=== PATIENT | female | born 1990 ===

== ENCOUNTER 2020-02-27 03:09 | Inpatient (IN) ==
[2020-02-27] MEDS ORDERED: OXYTOCIN 30 UNITS/500 ML BAG IV PRN ×3 (04:16→16:45)
--- NOTE | 2020-02-27 04:22 | History & Physical Report ---
Date of Service February 27, 2020 Assessment & Plan (1) Normal labor: Admit for labor. Fetus catgory one. Epidural on demand. Can feel a forebag that will likely need to be ruptured at some point. Pitocin as indicated. Anticipate . (2) SROM (spontaneous rupture of membranes): gbs neg History of Present Illness Chief Complaint: lof, contractions Primary Care Provider: NO PCP Patient is a 29yowf with iup at 40 5/7 presents to labor and delivery complaining of lof since about 1:45 am. Notes onset of contractions shortly after that. Patient is uncomfortable. Late transfer of care from [facility] because of concern for covid. She had been self-isolating with her mother since December. she had nob visit on 02/12 and her first ob visit on 02/13. complicated by morbid obesity. Had a normal growth us at 32 weeks. Her last visit in [place] was in January. Poorly controlled hypothyroidism predating the . Last TSH was 3. Records were available on transfer. Has [facility] and was on Adderall until about one month ago when she self discontinued. labs--O+/ab-/gc/ct nl/ri/rprnr/hepb-/hiv-/ gtt x 2 wnl/gbs neg Allergies Allergy/AdvReac Type Severity Reaction Status Date / Time shellfish derived Allergy Verified 02/21/20 09:27 Home Medications Home Medications Medication Instructions Recorded Confirmed Type albuterol sulfate 90 mcg/actuation 2 puffs INH Q6H PRN 02/13/20 02/21/20 History aerosol inhaler levothyroxine 200 mcg capsule 200 mcg PO DAILY 02/13/20 02/21/20 History prenat.vits,shahnaz,hnj-eiou-vjbfd 1 tab PO DAILY 02/13/20 02/21/20 History Patient History Medical History ADD (attention deficit disorder) Asthma Hx of varicella Hypothyroid Missed Obesity Surgical History H/O oral surgery Family History Grandmother (Maternal) Lung cancer Grandmother (Paternal) Lung cancer Mother Thyroid disease Osteoporosis Aunt Diabetes Other Hypertension Social History Preferred Language: Mongolian Communication Ability: Effective Beliefs That Will Affect Care: None marital status: Single marital status details: Nawaf Fonseca (38) [phone] Current Living Situation: Parent Current Living Situation Comment: currently living with parents but normally lives with boyfriend current occupational status: employed current occupation: [employer] Other Information That Helps Us Care for You: No Feels Safe at Home: Yes Safety Concerns: Feels Safe At This Time Smoking Status: Never smoker Second Hand Exposure: No ; Hx Alcohol Use: No Hx Substance Use: No OB History g1--02/18, sab, 7 weeks. [employer] History noncontributory Review of Systems All systems reviewed & are unremarkable except as noted in HPI & below Physical Exam Constitutional: WD/WN, vitals as above Cardiovascular: Extremities: + edema (+2 pitting); no calf tenderness Gastrointestinal (Abdomen): obese, gravid Psychiatric: A+Ox3, euthymic affect Genitourinary: sse--thin mec stained fluid noted, +p/n/f sve--3/90/-2 toco--q3-5min efm--135 with mod variability, accels to 160s, no decels Results & Data Vital Signs (Past 12 Hours) Vital Signs Temp Pulse Resp BP 02/27/20 03:44 85 158/83 H 02/27/20 03:42 70 183/103 H 02/27/20 03:32 36.8 C 20 Code Status & VTE Plan VTE Prophylaxis Plan VTE Prophylaxis will be ordered: No Coding Level of Care Code None Diagnoses Normal labor O80; Z37.9 SROM (spontaneous rupture of membranes)
[2020-02-27] MEDS ORDERED: ePHEDrine sulfate 50 MG/ML AMP ONE (04:41)
[2020-02-27] MEDS ORDERED: BUPIVACAINE 0.25% 30 ML VIAL ONE ×3 (04:41→13:09)
[2020-02-27] MEDS ORDERED: fentaNYL citrate 100 MCG/2 ML VIAL ONE (04:42)
[2020-02-27 04:43] LABS: Hematocrit (blood only) 33.9 % (37-47); Hemoglobin 10.7 g/dL (12.0-16.0); Mean Corpuscular Hemoglobin 23.2 pg (25-34); Mean Corpuscular Volume 73.4 fL (80-100); Mean Platelet Volume 11.1 fL (7.4-10.4); Platelet Count 177 K/uL (130-400); RDW Coefficient of Variation 16.6 % (11.5-14.5); Red Blood Count 4.62 M/uL (4.2-5.4); White Blood Count 8.35 K/uL (4.8-10.8)
[2020-02-27] MEDS ORDERED: fentaNYL 2MCG/ML ROPIV 1.25MG/ML 100 ML BAG EPI ONE (04:43)
[2020-02-27] MEDS: LACTATED RINGER'S 1,000 ML IV PRN ×2 (04:44→09:50)
[2020-02-27 04:58] LABS: Albumin Level 2.7 gm/dl (3.4-5.0); BUN Creatinine Ratio 9.1 (10-20); Calcium 8.6 mg/dl (8.5-10.1); Creatinine Clr Calc Pharmacy 121.4 ml/min; Est GFR (African American) 86.9; Potassium 3.9 mmol/L (3.5-5.1)
[2020-02-27 05:01] LABS: Albumin Globulin Ratio 0.6 (0.9-2); Bilirubin,Total 0.4 mg/dl (0.2-1); Globulin 4.4 gm/dl (2.5-4.0); Total Protein 7.1 gm/dl (6.4-8.2)
--- NOTE | 2020-02-27 05:08 | Anesthesiology Consultation ---
Date of Service February 27, 2020 Assessment & Plan (1) Encounter for pre-operative examination: Chart Review Chart Review: Acceptable Risk for Labor Epidural History Height/Weight Height: 5 ft 9 in Weight: 136.531 kg Allergies Allergy/AdvReac Type Severity Reaction Status Date / Time shellfish derived Allergy Verified 02/21/20 09:27 Medications Home Medications Medication Instructions Recorded Confirmed Last Taken albuterol sulfate 90 mcg/actuation 2 puffs INH Q6H PRN 02/13/20 02/21/20 Unknown aerosol inhaler levothyroxine 200 mcg capsule 200 mcg PO DAILY 02/13/20 02/21/20 Unknown prenat.vits,shahnaz,qal-jqyw-eultk 1 tab PO DAILY 02/13/20 02/21/20 Unknown Active Medications Generic Name Dose Route Start Last Admin Trade Name Freq PRN Reason Stop Dose Admin Lactated Ringer's 1,000 mls @ 125 mls/hr 02/27/20 04:16 02/27/20 04:44 Lr IV 02/29/20 04:15 999 mls/hr .Q8H PRN Administration L&D Protocol Protocol Past Medical History Medical History ADD (attention deficit disorder) Asthma Hx of varicella Hypothyroid Missed Obesity Past Family History Family History Grandmother (Maternal) Lung cancer Grandmother (Paternal) Lung cancer Mother Thyroid disease Osteoporosis Aunt Diabetes Other Hypertension Past Surgical History Surgical History H/O oral surgery Social History Smoking Status: Never smoker Hx Alcohol Use: No Hx Substance Use: No Physical Exam Vital Signs Last Vital Signs Temp 36.8 C 02/27/20 03:32 Pulse 85 02/27/20 03:44 Resp 20 02/27/20 03:32 BP 158/83 H 02/27/20 03:44 Testing Laboratory Results 02/27/20 04:25 02/27/20 04:25
[2020-02-27 05:27] LABS: Mean Corpuscular Hgb Conc 31.6 g/dL (32-36)
[2020-02-27] MEDS ORDERED: NALOXONE HCL 1 MG in SODIUM CHLORIDE 0.9% 1000ML 1,000 ML IV PRN (05:40)
[2020-02-27] MEDS ORDERED: fentaNYL 2MCG/ML ROPIV 1.25MG/ML 100 ML BAG EPI PRN (05:40)
[2020-02-27] MEDS ORDERED: ePHEDrine sulfate 50 MG/ML AMP IV PRN (05:40)
[2020-02-27] MEDS ORDERED: ONDANSETRON INJ 2 MG/ML 2 ML VIAL IV PRN (05:40)
[2020-02-27] MEDS ORDERED: NALOXONE HCL 0.4 MG/1 ML VIAL/CARP IV PRN (05:40)
--- NOTE | 2020-02-27 06:58 | Labor Progress Brief Note ---
Date of Service February 27, 2020 Subjective comfortable with epidural Assessment & Plan (1) SROM (spontaneous rupture of membranes): (2) Normal labor: continue current management. making change so will hold off on pitocin for now. fetus category one. anticipate . Physical Exam Constitutional: WD/WN, vitals as above Psychiatric: A+Ox3, euthymic affect Genitourinary: cx--4/75/-2 copious meconium toco--q2-4min efm--135 with mod variability, accels to 160s, no decels Results & Data Vital Signs (Past 12 Hours) Vital Signs Temp Pulse Resp BP Pulse Ox 02/27/20 06:52 95 H 98 02/27/20 06:47 79 96 02/27/20 06:45 64 128/80 02/27/20 06:42 76 97 02/27/20 06:37 64 97 02/27/20 06:32 76 97 02/27/20 06:30 66 118/76 02/27/20 06:27 62 98 02/27/20 06:23 85 93 02/27/20 06:22 67 95 02/27/20 06:17 86 97 02/27/20 06:16 70 118/71 02/27/20 06:12 94 H 97 02/27/20 06:07 96 H 96 02/27/20 06:02 77 97 02/27/20 05:59 96 H 91/61 L 02/27/20 05:57 98 H 99 02/27/20 05:52 111 H 98 02/27/20 05:47 101 H 99 02/27/20 05:44 109 H 105/61 02/27/20 05:42 110 H 115/66 97 02/27/20 05:40 103 H 118/69 02/27/20 05:38 122 H 123/71 02/27/20 05:37 121 H 98 02/27/20 05:32 100 H 139/88 98 02/27/20 05:31 81 91 02/27/20 05:27 87 100 02/27/20 05:22 92 H 100 02/27/20 05:17 81 180/82 H 100 02/27/20 05:10 36.6 C 02/27/20 03:44 85 158/83 H 05/27/20 03:42 70 183/103 H 05/27/20 03:32 36.8 C 20 Coding Level of Care Code None Diagnoses SROM (spontaneous rupture of membranes) Normal labor O80; Z37.9
--- NOTE | 2020-02-27 12:07 | Labor Progress Brief Note ---
Date of Service February 27, 2020 Cx still 4cm. Pitocin at 7 mu/min. Some early decels. IUPC placed to assess CTX strength Results & Data Vital Signs (Past 12 Hours) Vital Signs Temp Pulse Resp BP Pulse Ox 02/27/20 12:02 79 99 02/27/20 12:01 81 150/79 H 02/27/20 11:57 76 100 02/27/20 11:52 71 99 02/27/20 11:47 74 100 02/27/20 11:45 76 147/80 H 02/27/20 11:42 63 100 02/27/20 11:37 61 100 02/27/20 11:32 73 99 02/27/20 11:30 62 133/73 02/27/20 11:27 62 99 02/27/20 11:25 79 93 02/27/20 11:22 69 100 02/27/20 11:21 69 150/82 H 02/27/20 11:17 88 99 02/27/20 11:15 81 154/103 H 02/27/20 11:12 64 97 02/27/20 11:07 76 98 02/27/20 11:02 70 167/87 H 99 02/27/20 10:57 83 99 02/27/20 10:52 78 100 02/27/20 10:47 87 100 02/27/20 10:46 90 177/88 H 02/27/20 10:42 89 100 02/27/20 10:37 92 H 100 02/27/20 10:32 74 99 02/27/20 10:30 85 142/78 H 02/27/20 10:27 84 100 02/27/20 10:23 90 91 02/27/20 10:22 83 100 02/27/20 10:17 75 99 02/27/20 10:15 63 152/90 H 02/27/20 10:12 76 100 02/27/20 10:07 91 H 99 02/27/20 10:02 89 100 02/27/20 10:01 77 151/87 H 02/27/20 09:57 78 100 02/27/20 09:52 86 99 02/27/20 09:47 90 100 02/27/20 09:44 82 135/90 02/27/20 09:42 76 98 02/27/20 09:37 79 98 05 09:32 70 99 05 09:31 83 134/87 05 09:27 89 98 05 09:22 91 H 98 02/27/20 09:17 91 H 100 02/27/20 09:15 85 130/80 05 09:12 76 98 05 09:08 85 93 02/27/20 09:07 70 97 02/27/20 09:02 78 100 02/27/20 09:00 66 127/85 05 08:57 74 99 05 08:52 84 99 05 08:47 90 100 02/27/20 08:45 87 139/89 05 08:42 71 99 02/27/20 08:37 81 100 02/27/20 08:32 91 H 97 02/27/20 08:31 85 134/81 02/27/20 08:27 77 99 05 08:22 81 100 02/27/20 08:17 87 100 02/27/20 08:15 85 136/82 05 08:12 84 99 02/27/20 08:07 93 H 100 02/27/20 08:02 91 H 100 02/27/20 08:01 83 142/94 H 02/27/20 07:57 86 100 02/27/20 07:52 73 100 02/27/20 07:47 93 H 98 02/27/20 07:44 83 147/86 H 02/27/20 07:42 85 98 02/27/20 07:37 81 100 02/27/20 07:32 71 100 02/27/20 07:30 75 142/87 H 02/27/20 07:27 81 100 02/27/20 07:22 82 100 02/27/20 07:20 98.1 F 20 02/27/20 07:17 84 99 05 07:16 85 137/81 05 07:12 86 98 02/27/20 07:07 68 99 02/27/20 07:02 88 99 05 07:01 81 122/86 05 06:57 83 98 02/27/20 06:52 95 H 98 02/27/20 06:47 79 96 02/27/20 06:45 64 128/80 02/27/20 06:42 76 97 02/27/20 06:37 64 97 02/27/20 06:32 76 97 02/27/20 06:30 66 118/76 02/27/20 06:27 62 98 02/27/20 06:23 85 93 02/27/20 06:22 67 95 02/27/20 06:17 86 97 02/27/20 06:16 70 118/71 02/27/20 06:12 94 H 97 02/27/20 06:07 96 H 96 02/27/20 06:02 77 97 02/27/20 05:59 96 H 91/61 L 02/27/20 05:57 98 H 99 02/27/20 05:52 111 H 98 02/27/20 05:47 101 H 99 02/27/20 05:44 109 H 105/61 02/27/20 05:42 110 H 115/66 97 02/27/20 05:40 103 H 118/69 02/27/20 05:38 122 H 123/71 02/27/20 05:37 121 H 98 02/27/20 05:32 100 H 139/88 98 02/27/20 05:31 81 91 02/27/20 05:27 87 100 02/27/20 05:22 92 H 100 02/27/20 05:17 81 180/82 H 100 02/27/20 05:10 97.9 F 02/27/20 03:44 85 158/83 H 02/27/20 03:42 70 183/103 H 02/27/20 03:32 98.2 F 20 Coding Level of Care Code None
--- NOTE | 2020-02-27 13:15 | Communication Note ---
Date of Service: February 27, 2020 Patient with increasing pain despite upping her epidural rate. Gave 8ml of 0.25% bupivicaine with minimal relief. Checked a sensory loss level and seemed ep idural was one sided. Pulled catheter back 1cm and resecured. Additional 5ml 0.25% bupivicaine given. Better relief. VSS.
--- NOTE | 2020-02-27 16:32 | Delivery Summary ---
Vaginal Delivery Summary Date of Service February 27, 2020 Patient had been pushing for 2 hours and had reached maternal exhaustion she did have wrist for a shoulder dystocia as she is obese. With that being said I did offer the patient to continue pushing versus the option of vacuum assist station was +2 cm and I think vacuum appropriate and safe I could feel low pelvic disproportion discussed the risks including cephalhematoma of vacuum patient agreed Bladder was drained vacuum was applied we pulled for a total of 1 contraction no pop pop offs baby was delivered head first vacuum detached gentle traction on the baby no excessive force no difficulties with shoulder no nuchal cord baby was placed on the mother's abdomen and then to pediatrics. We did do bulb suction of the mouth. I had made a small right medial lateral episiotomy in preparation for possible shoulder dystocia. This was repaired with 3-0 Vicryl placenta was then removed with gentle traction IV Pitocin started estimated blood loss 300 mL no other tearing sponge and instrument counts correct
[2020-02-27] MEDS ORDERED: ACETAMINOPHEN 325 MG TAB PO PRN (16:45)
[2020-02-27] MEDS ORDERED: HYDROCORTISONE ACETATE 25 MG SUPP PR PRN (16:45)
[2020-02-27] MEDS ORDERED: ALBUTEROL HFA 8 GM INHALER INH PRN (16:45)
[2020-02-27] MEDS ORDERED: BENZOCAINE 20% AER SPR 82.5 GM CAN EXT PRN (16:45)
[2020-02-27] MEDS ORDERED: OXYCODONE/ACETAMINOPHEN 5mg/325mg TAB PO PRN (16:45)
[2020-02-27] MEDS ORDERED: SUPERCREAM 0.870% 15 GM JAR EXT PRN (16:45)
[2020-02-27] MEDS ORDERED: DIPHTHERIA/TETANUS/PERTUSSIS 0.5 ML SYR/VIAL IM ONE (16:45)
[2020-02-27] MEDS ORDERED: bisacodyL 10 MG SUPP PR PRN (16:45)
[2020-02-27] MEDS: IBUPROFEN 600 MG TAB PO PRN ×2 (16:50→20:59)
--- NOTE | 2020-02-27 16:52 | Anesthesia Procedure Note ---
Date of Service February 27, 2020 Anesthesia Post Epidural Note Vital Signs Vital Signs: Temp Pulse Resp BP Pulse Ox 36.7 C 118 H 20 137/79 100 02/27/20 07:20 02/27/20 16:42 02/27/20 14:13 02/27/20 16:42 02/27/20 16:18 Notes Mental Status: alert / awake / arousable and participated in evaluation Patient Amnestic to Procedure: No Nausea / Vomiting: adequately controlled Pain: adequately controlled Airway Patency, RR, SpO2: stable & adequate BP & HR: stable & adequate Hydration State: stable & adequate Neuraxial Anesthesia: was administered and sensory block is resolving Anesthetic Complications: no major complications apparent and Pt Satisfied with anesthetic care Epidural: Removed without complications and With tip intact
--- NOTE | 2020-02-27 16:52 | Anesthesiology Progress Note ---
Date of Service February 27, 2020 Anesthesia Post Procedure Vital Signs Vital Signs: Temp Pulse Resp BP Pulse Ox 02/27/20 16:42 118 H 137/79 02/27/20 16:24 118 H 157/74 H 02/27/20 16:18 134 H 100 02/27/20 16:13 138 H 99 02/27/20 16:09 126 H 189/87 H 02/27/20 16:08 136 H 95 02/27/20 16:03 111 H 98 02/27/20 15:58 117 H 97 02/27/20 15:53 111 H 92 02/27/20 15:49 123 H 92 02/27/20 15:48 111 H 97 02/27/20 15:43 121 H 98 02/27/20 15:39 106 H 150/89 H 02/27/20 15:38 98 H 96 02/27/20 15:33 109 H 98 02/27/20 15:28 143 H 98 02/27/20 15:24 118 H 134/86 02/27/20 15:23 117 H 95 02/27/20 15:21 108 H 94 02/27/20 15:18 116 H 97 02/27/20 15:14 128 H 92 02/27/20 15:13 118 H 98 02/27/20 15:09 119 H 172/79 H 93 02/27/20 15:08 114 H 81 L 02/27/20 15:04 122 H 91 02/27/20 15:03 108 H 97 02/27/20 14:58 110 H 98 02/27/20 14:57 137 H 91 02/27/20 14:55 126 H 169/84 H 02/27/20 14:53 108 H 97 02/27/20 14:52 136 H 145/85 H 93 02/27/20 14:48 117 H 98 02/27/20 14:43 113 H 98 02/27/20 14:41 138 H 93 02/27/20 14:38 111 H 96 02/27/20 14:33 104 H 98 02/27/20 14:32 123 H 150/74 H 02/27/20 14:30 140 H 86 L 02/27/20 14:28 116 H 98 02/27/20 14:25 114 H 149/81 H 02/27/20 14:23 141 H 93 02/27/20 14:18 144 H 93 02/27/20 14:13 112 H 20 98 02/27/20 14:11 122 H 93 02/27/20 14:08 131 H 98 02/27/20 14:07 139 H 147/83 H 02/27/20 14:05 101 H 160/75 H 89 L 02/27/20 14:03 101 H 98 02/27/20 14:00 125 H 153/68 H 02/27/20 13:58 94 H 98 02/27/20 13:57 98 H 162/85 H 02/27/20 13:54 101 H 159/77 H 02/27/20 13:53 140 H 93 02/27/20 13:52 108 H 156/74 H 02/27/20 13:50 112 H 154/76 H 02/27/20 13:48 143 H 91 02/27/20 13:46 125 H 153/67 H 02/27/20 13:44 125 H 187/76 H 02/27/20 13:43 96 H 163/75 H 99 02/27/20 13:40 136 H 152/58 H 02/27/20 13:38 96 H 168/73 H 100 02/27/20 13:36 91 H 176/77 H 02/27/20 13:34 91 H 167/79 H 02/27/20 13:33 83 100 02/27/20 13:32 94 H 170/85 H 02/27/20 13:30 82 160/78 H 02/27/20 13:28 90 170/93 H 100 02/27/20 13:26 108 H 152/106 H 02/27/20 13:25 78 178/91 H 02/27/20 13:23 98 H 100 02/27/20 13:22 81 157/78 H 02/27/20 13:20 161/89 H 02/27/20 13:18 88 161/80 H 99 02/27/20 13:16 79 175/87 H 02/27/20 13:14 85 22 170/88 H 02/27/20 13:13 86 128/68 100 02/27/20 13:11 99 H 164/79 H 02/27/20 13:08 75 182/90 H 02/27/20 13:07 96 H 99 02/27/20 13:06 83 157/87 H 02/27/20 13:04 88 179/91 H 02/27/20 13:03 87 191/100 H 02/27/20 13:02 88 99 02/27/20 13:00 81 173/93 H 02/27/20 12:59 90 193/101 H 02/27/20 12:58 80 92 02/27/20 12:57 75 99 02/27/20 12:56 76 185/92 H 02/27/20 12:54 80 187/91 H 02/27/20 12:52 78 192/101 H 99 02/27/20 12:50 90 191/98 H 02/27/20 12:47 77 99 02/27/20 12:46 76 195/101 H 02/27/20 12:42 91 H 100 02/27/20 12:37 75 99 02/27/20 12:32 78 100 02/27/20 12:30 68 172/88 H 02/27/20 12:27 67 100 02/27/20 12:22 71 100 02/27/20 12:17 74 100 02/27/20 12:16 68 20 165/97 H 02/27/20 12:12 82 99 02/27/20 12:07 75 100 02/27/20 12:02 79 99 02/27/20 12:01 81 150/79 H 02/27/20 11:57 76 100 02/27/20 11:52 71 99 02/27/20 11:47 74 100 02/27/20 11:45 76 147/80 H 02/27/20 11:42 63 100 02/27/20 11:37 61 100 02/27/20 11:32 73 99 02/27/20 11:30 62 133/73 02/27/20 11:27 62 99 02/27/20 11:25 79 93 02/27/20 11:22 69 100 05 11:21 69 150/82 H 02/27/20 11:17 88 99 02/27/20 11:15 81 22 154/103 H 02/27/20 11:12 64 97 02/27/20 11:07 76 98 02/27/20 11:02 70 167/87 H 99 02/27/20 10:57 83 99 02/27/20 10:52 78 100 05/27/20 10:47 87 100 05 10:46 90 177/88 H 05 10:42 89 100 05 10:37 92 H 100 05 10:32 74 99 05 10:30 85 142/78 H 02/27/20 10:27 84 100 05 10:23 90 91 05 10:22 83 100 05 10:17 75 99 05 10:15 63 20 152/90 H 05 10:12 76 100 05 10:07 91 H 99 05 10:02 89 100 05 10:01 77 151/87 H 05 09:57 78 100 02/27/20 09:52 86 99 02/27/20 09:47 90 100 05 09:44 82 135/90 05 09:42 76 98 05 09:37 79 98 05 09:32 70 99 05 09:31 83 134/87 05 09:27 89 98 05 09:22 91 H 98 02/27/20 09:17 91 H 100 02/27/20 09:15 85 18 130/80 05 09:12 76 98 02/27/20 09:08 85 93 05 09:07 70 97 05 09:02 78 100 05 09:00 66 127/85 05 08:57 74 99 05 08:52 84 99 05 08:47 90 100 05 08:45 87 139/89 05 08:42 71 99 05 08:37 81 100 05 08:32 91 H 97 05 08:31 85 134/81 05 08:27 77 99 05 08:22 81 100 05 08:17 87 100 05 08:15 85 20 136/82 05 08:12 84 99 05 08:07 93 H 100 05 08:02 91 H 100 02/27/20 08:01 83 142/94 H 02/27/20 07:57 86 100 02/27/20 07:52 73 100 02/27/20 07:47 93 H 98 02/27/20 07:44 83 147/86 H 02/27/20 07:42 85 98 02/27/20 07:37 81 100 02/27/20 07:32 71 100 02/27/20 07:30 75 142/87 H 02/27/20 07:27 81 100 02/27/20 07:22 82 100 02/27/20 07:20 36.7 C 20 02/27/20 07:17 84 99 02/27/20 07:16 85 18 137/81 02/27/20 07:12 86 98 02/27/20 07:07 68 99 02/27/20 07:02 88 99 02/27/20 07:01 81 122/86 02/27/20 06:57 83 98 02/27/20 06:52 95 H 98 02/27/20 06:47 79 96 02/27/20 06:45 64 128/80 02/27/20 06:42 76 97 02/27/20 06:37 64 97 02/27/20 06:32 76 97 02/27/20 06:30 66 118/76 05 06:27 62 98 02/27/20 06:23 85 93 02/27/20 06:22 67 95 02/27/20 06:17 86 97 02/27/20 06:16 70 118/71 02/27/20 06:12 94 H 97 02/27/20 06:07 96 H 96 02/27/20 06:02 77 97 02/27/20 05:59 96 H 91/61 L 02/27/20 05:57 98 H 99 02/27/20 05:52 111 H 98 02/27/20 05:47 101 H 99 02/27/20 05:44 109 H 105/61 05 05:42 110 H 115/66 97 02/27/20 05:40 103 H 118/69 05 05:38 122 H 123/71 05 05:37 121 H 98 02/27/20 05:32 100 H 139/88 98 0520 05:31 81 91 02/27/20 05:27 87 100 02/27/20 05:22 92 H 100 02/27/20 05:17 81 180/82 H 100 02/27/20 05:10 36.6 C 02/27/20 03:44 85 158/83 H 02/27/20 03:42 70 183/103 H 02/27/20 03:32 36.8 C 20 Transfer of Care Handoff Completed per policy Notes Mental Status: alert / awake / arousable and participated in evaluation Patient Amnestic to Procedure: Yes Nausea / Vomiting: adequately controlled Pain: adequately controlled Airway Patency, RR, SpO2: stable & adequate BP & HR: stable & adequate Hydration State: stable & adequate Anesthetic Complications: no major complications apparent and Pt Satisfied with anesthetic care
[2020-02-27 17:08] LABS: Base Excess Cord Venous Blood -5.1 mEq/L (-7.7-1.9); Cord Venous Blood HCO3 18 mmol/L (18.4-26.8); Cord Venous Blood PCO2 31 mmHg (30.4-57.2); Cord Venous Blood PO2 27 mmHg (14.1-43.3); Cord Venous Blood pH 7.39 (7.20-7.44)
[2020-02-27] MEDS ORDERED: LACTATED RINGER'S 500 ML IV ONE (19:02)
[2020-02-27] MEDS: DOCUSATE SODIUM 100 MG CAP PO SCH (20:24)
[2020-02-28] MEDS: IBUPROFEN 600 MG TAB PO PRN ×3 (00:30→15:32)
--- NOTE | 2020-02-28 05:27 | Obstetrical Progress Note ---
Date of Service February 28, 2020 Assessment & Plan Admission and Anticipated Discharge Date Admission Date: February 27, 2020 29 yo s/p vacuum assisted VD @ 40.5 complicated by hypothyroidism, morbid obesity, and ADD - PPD# 1 - GBS -, Blood Type O+ - Feels well today. Eating well, voiding well, ambulating well. - Pain well controlled. - Routine post care - After discharge will have [address] Lynn. Supervising Physician Co-Signing Physician Notes Resident Physician Supervision Note: I was present with [Joe] during the history and exam. I discussed the case with the resident and agree with the findings and plan as documented in the note. Any exceptions or clarifications are listed here: [None] Documented By: Myranda Lynn MD, FACOG Subjective She is doing well this morning. She is eating a regular diet and bleeding is improving. Pain is 3/10. She had no questions this morning. Review of Systems Review of Systems: Denies fever, chills, sweats Denies shortness of breath, difficulty breathing, chest pain, palpitations, chest pressure. Denies breast pain. Denies dysuria. Denies headache. Physical Exam Physical Exam: General: Alert, oriented. No acute distress. Cardiac: Regular rate and rhythm, no murmurs/rubs/gallops. Respiratory: Clear to auscultation anterior and posteriorly, no wheezes/rales/rhonchi. No increased work of breathing. Symmetrical chest rise. No respiratory distress. Abdomen: Soft, nontender, nondistended. Bowel sounds present. Uterus: Uterine fundus firm, palpable 1 cm below umbilicus. Lower Extremities: No lower extremity edema or swelling. No deep calf pain. Nathan's negative bilaterally. Results & Data ([facility]) Vital Signs (Past 12 Hours) Vital Signs Temp Pulse Pulse Resp BP BP 02/28/20 00:15 36.8 C 83 18 153/95 H 02/27/20 21:00 36.6 C 97 H 18 136/91 02/27/20 20:00 18 02/27/20 19:35 122 H 144/97 H 02/27/20 19:09 105 H 160/75 H 02/27/20 18:54 127 H 140/91 02/27/20 18:39 106 H 134/73 02/27/20 18:25 36.5 C 137 H 18 117/69 02/27/20 18:24 137 H 117/69 02/27/20 18:08 127 H 134/80 02/27/20 17:55 106 H 18 140/82 02/27/20 17:54 106 H 140/82 02/27/20 17:38 148 H 140/82 02/27/20 17:29 139 H 135/76 02/27/20 17:25 146 H 18 143/74 H Resident Activity Tracking Resident Involvement: Resident Care Provided Care Provided: OB Delivery
[2020-02-28] MEDS: LEVOTHYROXINE SODIUM 200 MCG TABLET PO SCH (06:26)
[2020-02-28 06:41] LABS: Hematocrit (blood only) 23.2 % (37-47); Hemoglobin 7.3 g/dL (12.0-16.0); Mean Corpuscular Hgb Conc 31.5 g/dL (32-36); Mean Platelet Volume 11.3 fL (7.4-10.4); Platelet Count 166 K/uL (130-400); RDW Coefficient of Variation 16.8 % (11.5-14.5); RDW Standard Deviation 44.6 fL (36.4-46.3); Red Blood Count 3.18 M/uL (4.2-5.4); White Blood Count 14.72 K/uL (4.8-10.8)
[2020-02-28] MEDS ORDERED: NON-FORMULARY MEDICATION (Prenat.Vits,Cal,Min-Iron-Folic 1 TAB) PO SCH (09:00)
[2020-02-28] MEDS: DOCUSATE SODIUM 100 MG CAP PO SCH ×2 (09:18→20:40)
[2020-02-28] MEDS: PRENATAL VITAMIN 1 TAB PO SCH (09:18)
[2020-02-28] MEDS: LABETALOL HCL 100 MG TAB PO SCH ×2 (13:40→20:40)
[2020-02-28] MEDS: FERROUS SULFATE 325 MG TAB PO SCH (18:54)
[2020-02-28] MEDS ORDERED: bisacodyL 5 MG TABEC PO SCH (20:00)
[2020-02-29] MEDS: IBUPROFEN 600 MG TAB PO PRN ×3 (00:55→16:05)
--- NOTE | 2020-02-29 05:36 | Obstetrical Progress Note ---
Date of Service February 29, 2020 Assessment & Plan Admission and Anticipated Discharge Date Admission Date: February 27, 2020 29 yo s/p vacuum assisted VD @ 40.5, complicated by ADD, hypothyroidism and elevated BP. Anemia - HGb 6, symptomatic - transfuse 2U - recheck H&H 2 hours after transfusion Elevated BP - started Labetolol 100 mg BID - follow up BP check at 2 weeks Hypothyroidism - continue home meds -PPD# 2 - GBS -, Blood Type A+ - Feels well today. Eating well, voiding well, ambulating well. - Pain well controlled . - Routine post care - After discharge will have [address] Lynn. Supervising Physician Co-Signing Physician Notes Resident Physician Supervision Note: I interviewed and examined the patient. Discussed with Dr. Smart and agree with findings and plan as documented in the note. Any exceptions or clarifications are listed here: On further questioning, Smiley has been fatigued and lightheaed when up & walking. Lochia has been small. Hgb is now 6 and because she is symptomatic, we will transfuse 2 units PRBC's with post transfusion H&H. Hope to discharge to home after transfusion. Documented By: Brittaney Root MD, FACOG Subjective She is doing well this morning. She is eating a regular diet and bleeding is improving. Pain is 3/10. She had no questions this morning. Review of Systems Review of Systems: Denies fever, chills, sweats Denies shortness of breath, difficulty breathing, chest pain, palpitations, chest pressure. Denies breast pain. Denies dysuria. Denies headache. Physical Exam Physical Exam: General: Alert, oriented. No acute distress. Cardiac: Regular rate and rhythm, no murmurs/rubs/gallops. Respiratory: Clear to auscultation anterior and posteriorly, no wheezes/rales/rhonchi. No increased work of breathing. Symmetrical chest rise. No respiratory distress. Abdomen: Soft, nontender, nondistended. Bowel sounds present. Uterus: Uterine fundus firm, palpable 1 cm below umbilicus. Lower Extremities: No lower extremity edema or swelling. No deep calf pain. Nathan's negative bilaterally. Results & Data ([facility]) Vital Signs (Past 12 Hours) Vital Signs Temp Pulse Resp BP 02/29/20 00:20 36.9 C 109 H 18 143/97 H 02/28/20 20:44 98 H 137/90 Resident Activity Tracking Resident Involvement: Resident Care Provided Care Provided: OB Delivery
[2020-02-29 06:36] LABS: Hematocrit (blood only) 19.5 % (37-47)
[2020-02-29] MEDS: LEVOTHYROXINE SODIUM 200 MCG TABLET PO SCH (06:41)
[2020-02-29] MEDS ORDERED: SODIUM CHLORIDE 0.9% 250 ML IV PRN ×2 (07:24→08:06)
[2020-02-29] MEDS: PRENATAL VITAMIN 1 TAB PO SCH (09:03)
[2020-02-29] MEDS: LABETALOL HCL 100 MG TAB PO SCH ×2 (09:03→21:11)
[2020-02-29] MEDS: FERROUS SULFATE 325 MG TAB PO SCH (09:04)
[2020-02-29] MEDS: DOCUSATE SODIUM 100 MG CAP PO SCH ×2 (09:04→21:11)
[2020-03-01] MEDS: IBUPROFEN 600 MG TAB PO PRN ×2 (02:10→06:29)
--- NOTE | 2020-03-01 06:00 | Obstetrical Progress Note ---
Date of Service March 01, 2020 Assessment & Plan Admission and Anticipated Discharge Date Admission Date: February 27, 2020 29 yo s/p vacuum assisted VD @ 40.5 complicated by ADD, hypothyroidism, and suspected IUGR. -PPD# 3 - GBS -, Blood Type O+ Anemia - symptomatic w/ Hgb 6 - transfused 2 units - follow up H&H this morning - Feels well today. Eating well, voiding well, ambulating well. - Pain well controlled. - After discharge will have [address] Lynn. Supervising Physician Co-Signing Physician Notes Patient seen and evaluated and agree with the above findings and plan. Doing well. S/p blood transfusion with good response. Stable for discharge Subjective She is doing well this morning. She is eating a regular diet and bleeding is improving. Pain is 3/10. She is feeling tired and weak. She had no questions this morning. Review of Systems Review of Systems: Denies fever, chills, sweats Denies shortness of breath, difficulty breathing, chest pain, palpitations, chest pressure. Denies breast pain. Denies dysuria. Denies headache. Physical Exam Physical Exam: General: Alert, oriented. No acute distress. Cardiac: Regular rate and rhythm, no murmurs/rubs/gallops. Respiratory: Clear to auscultation anterior and posteriorly, no wheezes/rales/rhonchi. No increased work of breathing. Symmetrical chest rise. No respiratory distress. Abdomen: Soft, nontender, nondistended. Bowel sounds present. Uterus: Uterine fundus firm, palpable 1 cm below umbilicus. Lower Extremities: No lower extremity edema or swelling. No deep calf pain. Nathan's negative bilaterally. Results & Data ([facility]) Vital Signs (Past 12 Hours) Vital Signs Temp Pulse Resp BP 02/29/20 23:55 36.8 C 73 18 143/87 H 02/29/20 19:30 36.8 C 80 18 130/85 Resident Activity Tracking Resident Involvement: Resident Care Provided Care Provided: OB Delivery
[2020-03-01] MEDS: LEVOTHYROXINE SODIUM 200 MCG TABLET PO SCH (06:30)
[2020-03-01 07:38] LABS: Hematocrit (blood only) 24.8 % (37-47); Hemoglobin 7.8 g/dL (12.0-16.0)
[2020-03-01] MEDS: PRENATAL VITAMIN 1 TAB PO SCH (08:30)
[2020-03-01] MEDS: DOCUSATE SODIUM 100 MG CAP PO SCH (08:30)
[2020-03-01] MEDS: FERROUS SULFATE 325 MG TAB PO SCH (08:30)
[2020-03-01] MEDS: LABETALOL HCL 100 MG TAB PO SCH (08:30)
--- NOTE | 2020-03-03 10:27 | Discharge Summary ---
Date of Service March 03, 2020 Admission HPI Per Admitting Provider Patient is a 29yowf with iup at 40 5/7 presents to labor and delivery complaining of lof since about 1:45 am. Notes onset of contractions shortly after that. Patient is uncomfortable. Late transfer of care from [facility] because of concern for covid. She had been self-isolating with her mother since December. she had nob visit on 02/12 and her first ob visit on 02/13. complicated by morbid obesity. Had a normal growth us at 32 weeks. Her last visit in [place] was in January. Poorly controlled hypothyroidism predating the . Last TSH was 3. Records were available on transfer. Has AHDH and was on Adderall until about one month ago when she self discontinued. labs--O+/ab-/gc/ct nl/ri/rprnr/hepb-/hiv-/ gtt x 2 wnl/gbs neg Admission Exam (Per Admitting) Constitutional WD/WN, vitals as above Respiratory normal respiratory effort, lungs clear to auscultation Cardiovascular RRR, no murmur, no edema Discharge Data Consultations 02/27/20 04:16 Consult Anesthesiology Stat Hospital Course (1) Supervision of normal intrauterine in primigravida: (2) bleeding: Patient had an uncomplicated vacuum assisted delivery. She did require 2 U PRBC transfusion as Hb dropped to 6. Recovered well after this and sent home by the team Coding Level of Care Code None Diagnoses Supervision of normal intrauterine in primigravida Z34.00 bleeding O72.1 hemorrhage type: unspecified
== END 2020-03-01 11:00 | disposition home or self-care (01) | DRG 807 ==
LOC: OPB 03:09 → 4S1 03:13 → 4S2 20:56
DX: Z91.018 Allergy to other foods; O99.344 Other mental disorders complicating childbirth; Z79.899 Other long term (current) drug therapy; E03.9 Hypothyroidism, unspecified; Z91.013 Allergy to seafood; E66.01 Morbid (severe) obesity due to excess calories; D64.9 Anemia, unspecified; O36.5930 Maternal care for other known or suspected poor fetal growth, third trimester, not applicable or unspecified; O99.284 Endocrine, nutritional and metabolic diseases complicating childbirth; Z37.0 Single live birth; J45.909 Unspecified asthma, uncomplicated; O72.1 Other immediate postpartum hemorrhage; O99.89 Other specified diseases and conditions complicating pregnancy, childbirth and the puerperium; O75.81 Maternal exhaustion complicating labor and delivery; O77.0 Labor and delivery complicated by meconium in amniotic fluid; O99.214 Obesity complicating childbirth; F90.9 Attention-deficit hyperactivity disorder, unspecified type; O36.8330 Maternal care for abnormalities of the fetal heart rate or rhythm, third trimester, not applicable or unspecified; Z79.890 Hormone replacement therapy; R03.0 Elevated blood-pressure reading, without diagnosis of hypertension; O99.52 Diseases of the respiratory system complicating childbirth; O99.03 Anemia complicating the puerperium; Z3A.40 40 weeks gestation of pregnancy